=== PATIENT | male | born 1960 | race African-American/Black ===

== ENCOUNTER → 2016-07-17 | Outpatient (CLI) | payer BC ==
--- NOTE | 2016-07-17 16:21 | RAD ---
Left wrist, 4 views, 07/17/2016: History: Wrist pain No acute fracture or dislocation is identified. There is narrowing of the radiocarpal joint with subchondral sclerosis and cyst formation. There is mild marginal spurring. IMPRESSION: 1. Moderate degenerative change at the radiocarpal articulation. 2. No acute bony abnormality is detected.
== END | disposition home or self-care (01) ==
LOC: DXRADRC 15:42
PROVIDERS: ATTEND Physician Assistant Medical
DX: M25.532 Pain in left wrist (principal)
CPT/HCPCS: 73110

== ENCOUNTER → 2018-07-04 | Outpatient (CLI) | payer BC ==
[~2018-07-04] MED LIST: IOHEXOL 240 MG/ML 50ML VIAL. ONE; IOHEXOL 300 MG/ML 75 ML VIAL. IV ONE
--- NOTE | 2018-07-04 17:16 | RAD ---
EXAM: CT Abdomen and Pelvis without IV contrast CLINICAL HISTORY: LOWER PELVIC PAIN COMPARISON: none TECHNIQUE: Helical CT of the abdomen and pelvis without intravenous contrast. Oral contrast was administered. Axial, coronal and sagittal reformatted images were generated. PQRS compliance statement - One or more of the following individualized dose reduction techniques were utilized for this study: 1. Automated exposure control 2. Adjustment of the mA and/or kV according to patient size 3. Use of iterative reconstruction technique FINDINGS: Lack of intravenous contrast limits evaluation of solid organs, vasculature, and lymph nodes. Lower chest: Lung bases are clear. Calcified mediastinal lymph nodes are seen. Small hiatal hernia. Abdomen and Pelvis: No focal liver lesion. Gallbladder is normal. No biliary ductal dilatation. Spleen is unremarkable. Adrenal glands and pancreas are unremarkable. Symmetric nephrograms. No focal renal lesion. No hydronephrosis. Appendix is normal. No small or large bowel dilatation. Moderate colonic stool content. Extensive colonic diverticulosis most prominent in the sigmoid colon. Associated fat infiltration is seen consistent with acute diverticulitis. This fat infiltration/laboratory change extends to the dome of the bladder with associated wall thickening and inflammatory changes, cystitis. Foci of gas are seen within the bladder. In the absence of recent catheterization or procedure, fistula from the colon is suspected given the segment of effaced fat plane between the colon and bladder. No abdominal or pelvic ascites. No abdominal or pelvic lymphadenopathy. Small fat-containing periumbilical hernia. Bones: Multilevel degenerative changes of the spine are seen. No aggressive osseous lesion is seen. IMPRESSION: 1. Acute diverticulitis without evidence for free intraperitoneal gas or associated loculated fluid collection. 2. Infiltrative changes extend from the sigmoid colon to the bladder with foci of gas seen within the bladder. In the absence of recent catheterization or instrumentation, colovesical fistula would result in this appearance. Associated bladder wall thickening, cystitis. Electronically signed by: Kenneth Ortiz MD (07/04/2018 5:13 PM) [facility]
== END | disposition home or self-care (01) ==
LOC: MERGE 15:51 → CT 15:51
PROVIDERS: ATTEND Registered Nurse
DX: K57.30 Diverticulosis of large intestine without perforation or abscess without bleeding (principal); K42.9 Umbilical hernia without obstruction or gangrene; N30.80 Other cystitis without hematuria; M47.899 Other spondylosis, site unspecified; K44.9 Diaphragmatic hernia without obstruction or gangrene; R59.0 Localized enlarged lymph nodes
CPT/HCPCS: 74177; Q9967

== ENCOUNTER → 2018-07-25 | Outpatient (CLI) | payer BC ==
[~2018-07-25] MED LIST changes: -IOHEXOL 240 MG/ML 50ML VIAL. ONE
--- NOTE | 2018-07-25 17:24 | RAD ---
CT STUDY OF THE CHEST WITH CONTRAST Clinical indications: Calcified mediastinal lymph nodes seen on recent abdomen CT. Lymph node symptoms. COMPARISON: CT study of the abdomen dated July 04, 2018. At technique: After IV infusion of 75 cc Omnipaque 300, helical CT scanning of the chest was performed. FINDINGS: Bilateral axillary lymph nodes are seen which do not appear to be abnormally enlarged. Some of them are fatty replaced which is a benign finding. Calcified lymph nodes are seen within the mediastinum most prominently the subcarinal region. This is due to old granulomatous disease. Small noncalcified lymph nodes are seen within the aortic pulmonary window. The largest measures 15 mm here. A precarinal lymph node is seen measuring 13 mm. These are the most prominent lymph nodes. Right hilar lymph nodes are seen measuring 13 mm and 14 mm.. No left hilar lymphadenopathy is evident. There is ectasia of the ascending aorta measuring up to 4.9 cm in greatest caliber. No intimal flap or dissection is seen. The heart size is normal and no pericardial effusion is evident. Small hiatal hernia is seen. There is wall thickening of the distal esophagus which may be seen with reflux esophagitis. No pleural effusion or pneumothorax is evident. The proximal bronchial tree is patent. No lung mass or lung consolidation is evident. No lytic process is seen. No compression deformity of the thoracic spine is evident. IMPRESSION: No acute lung infiltrate or lung mass is seen. Calcified lymph nodes are seen within the mediastinum due to old granulomatous disease. There are additional noncalcified mediastinal lymph nodes and right hilar lymph nodes which do not appear to be abnormally enlarged at this point in time. This finding may be followed with a CT study and IV contrast in 6 months if clinically indicated. Ectasia of the ascending aorta measuring up to 4.9 cm in greatest dimension. At 5 cm, it is considered aneurysmal. This may be secondary to hypertension or aortic valvular disease. Heart size is normal and no pericardial effusion is seen. Small hiatal hernia. Wall thickening of the distal esophagus which may be seen with gastroesophageal reflux. Electronically signed by: Benny Hodgson MD (07/25/2018 5:21 PM) [id number]
== END | disposition home or self-care (01) ==
LOC: CT 15:49 → MERGE 15:49
PROVIDERS: ATTEND Registered Nurse
DX: K44.9 Diaphragmatic hernia without obstruction or gangrene (principal); I77.810 Thoracic aortic ectasia; K22.8 Other specified diseases of esophagus
CPT/HCPCS: 71260; Q9967

== ENCOUNTER → 2020-02-02 | Outpatient (CLI) | payer BC ==
--- NOTE | 2020-02-02 16:52 | RAD ---
EXAM: Lumbar spine, 5 views; cervical spine, 5 views. HISTORY: Pain. COMPARISON: None. FINDINGS: Lumbar spine: 5 views of the lumbar spine are obtained. There is mild retrolisthesis of L3 on L4, L4 and L5 and L5 on S1. There is degenerative endplate remodeling with disc space narrowing, osteophytosis and facet arthropathy at multiple levels. The disc space narrowing is most significant at L1-L2, L4-L5 and L5-S1 and facet arthropathy is predominantly at the lumbosacral junction. Cervical spine: 5 views of the cervical spine are obtained. There is mild retrolisthesis of C3 on C4. There is degenerative endplate remodeling and disc space narrowing at this level. There is also endplate remodeling at the remainder of the cervical levels. There is a small ossicle posterior to the C6 spinous process which is likely developmental or the sequela of remote injury. There is multilevel facet arthropathy. IMPRESSION: 1. Multilevel degenerative change involving the lumbar spine, described above. 2. Multilevel degenerative change involving the cervical spine, described above. This is predominantly at C3-C4. 3. No acute osseous finding. Electronically signed by: Patrizia Retana MD (02/02/2020 4:49 PM) [id number]
== END ==
LOC: RAD 16:18
PROVIDERS: ATTEND Physician Assistant Medical
DX: M47.812 Spondylosis without myelopathy or radiculopathy, cervical region (principal); M47.817 Spondylosis without myelopathy or radiculopathy, lumbosacral region; M43.12 Spondylolisthesis, cervical region; M43.17 Spondylolisthesis, lumbosacral region; M25.78 Osteophyte, vertebrae
CPT/HCPCS: 72040; 72110

== ENCOUNTER → 2020-09-24 | Outpatient (CLI) | payer BC ==
--- NOTE | 2020-09-24 16:03 | RAD ---
EXAMINATION: CT abdomen and pelvis without IV contrast. INDICATION:60 years, Male, history of diverticular abscess. TECHNIQUE: Axial CT images of the abdomen and pelvis were obtained. Coronal and sagittal reformatted performed. COMPARISON: 07/04/2018. Exposure: One or more of the following individualized dose reduction techniques were utilized for thi s examination: 1. Automated exposure control 2. Adjustment of the mA and/or kV according to patient size 3. Use of iterative reconstruction technique. FINDINGS: LOWER CHEST: Calcified granuloma in the right lung base. Subcarinal calcified lymph nodes. ABDOMEN/PELVIS: Within limitation of noncontrast exam, Liver, gallbladder, biliary ducts, spleen, pancreas, adrenals and kidneys are unremarkable. Small hi atal hernia. Postsurgical changes of sigmoidectomy. Colonic diverticulosis without diverticulitis. Ap pendix is normal. Normal caliber abdominal aorta. Joleen fat in the central small bowel mesentery with prominent mesenteric lymph nodes, nonspecific findings and can be seen in mesenteric panniculitis. O therwise, no lymphadenopathy in the abdomen or pelvis by size criteria. No pneumoperitoneum or ascite s. Unremarkable urinary bladder and prostate. No pelvic masses. MUSCULOSKELETAL: Severe multilevel degenerative changes, worst at L4-5 and L5-S1. Bilateral L5 sacralization. Small fa t-containing umbilical hernia. IMPRESSION: 1. No acute abnormality in the abdomen or pelvis, within limitation of noncontrast exam. 2. Post sigmoidectomy changes. Colonic diverticulosis without diverticulitis. Electronically signed by: Jay Webb MD (09/24/2020 4:00 PM) [id number]
== END ==
LOC: CT 15:10
PROVIDERS: ATTEND Physician Assistant Medical
DX: K42.9 Umbilical hernia without obstruction or gangrene (principal); K44.9 Diaphragmatic hernia without obstruction or gangrene; M47.817 Spondylosis without myelopathy or radiculopathy, lumbosacral region; Z87.19 Personal history of other diseases of the digestive system
CPT/HCPCS: 74176